=== PATIENT | male | born 1955 | race Two or more races ===

== ENCOUNTER 2024-11-07 10:39 | Day surgery (SDC) | payer MEDICARE, MEDICAID ==
[2024-11-05 12:50] LABS: Urine Bacteria None Seen /hpf (None Seen)
[2024-11-05 13:17] LABS: Basophils # (auto) 0 10 ^3/uL (0-0.2); Eosinophils # (auto) 0.1 10 ^3/uL (0-0.8); Hemoglobin 12.9 g/dL (13.5-17.5); Monocytes # (auto) 0.6 10 ^3/uL (0-1.3); Urine Blood TRACE /uL (Negative); Urine Clarity Clear (Clear); Urine Color Light-Yellow (Yellow); Urine Protein, UAD Negative (Negative); Urine Specific Gravity 1.016 (1.001-1.035); Urine Squamous Epithelial Cell FEW /hpf (<5); Urine Urobilinogen Normal (Negative); Urine WBC < 1 /HPF (0-3); White Blood Cell 9.3 10^3/uL (4.4-10.8)
[2024-11-05 13:19] LABS: Basophils % (auto) 0.4 % (0.0-2.0); Eosinophils % (auto) 1.2 % (0.0-7.0); Hematocrit 41.1 % (41.0-53.0); Lymphocytes # (auto) 1.7 10 ^3/uL (0.4-5.4); Lymphocytes % (auto) 18.1 % (10.0-50.0); Mean Corpuscular Hemoglobin 21.8 pg (28.0-32.0); Mean Corpuscular Hgb Conc. 31.5 g/dL (32.0-36.0); Mean Corpuscular Volume 69.3 fL (80.0-100.0); Monocytes % (auto) 6.2 % (0.0-12.0); Neutrophils # (auto) 6.9 10 ^3/uL (1.6-8.6); Neutrophils % (auto) 74.1 % (37.0-80.0); Nucleated Red Blood Cells % 0.1 %; Platelet Count (auto) 255 10^3/uL (140-450); Red Blood Cells 5.93 10^6/uL (4.5-5.90); Red Cell Distribution Width 15.2 % (11.8-14.3)
[2024-11-05 13:35] LABS: INR 0.97 (0.9-1.15); Partial Thromboplastin Time 30.6 SEC (24.5-34.5); Prothrombin Time 10.3 sec (9.3-11.8)
[2024-11-05 13:46] LABS: Alanine Aminotransferase 35 U/L (7-40); Alkaline Phosphatase 81 U/L (46-116); Anion Gap 8 (5-15); Aspartate Aminotransferase 24 U/L (13-40); Blood Urea Nitrogen 18 mg/dL (9-23); Calcium 9.9 mg/dL (8.7-10.4); Carbon Dioxide 28 mmol/L (20-31); Chloride 102 mmol/L (98-107); Glucose 97 mg/dL (74-106); Potassium 3.7 mmol/L (3.5-5.1); Sodium 138 mmol/L (136-145)
[2024-11-05 13:47] LABS: Bilirubin, Total 0.4 mg/dL (0.2-1.0); Total Protein 7.7 g/dL (5.7-8.2)
[2024-11-05 13:52] LABS: Albumin 5.1 g/dL (3.2-4.8)
[~2024-11-07] VITALS: Ht 162.6 cm; Wt 63.5 kg
[~2024-11-07 10:39] MED LIST: ALLO300T2 PO; AMLO1TAB22 PO; ASPI1TAB38 PO; B-CO1CAP18 PO; CHOL20007 PO; CLOP75TA70 PO; DONETAB5 PO; FERR325T24 PO; LOSA-534 PO; METF-929 PO; ROSU5TAB24 PO; TAMS-35 PO
[2024-11-07] MEDS ORDERED: ceFAZolin 2 GM/D5W100ml 100 ML IV ONE (11:28)
[2024-11-07] MEDS ORDERED: ROPIVACAINE 0.5% (5MG/ML) 20ML AMPULE IJ ONE (12:42)
[2024-11-07] MEDS ORDERED: ceFAZolin 1GM VL ONE (12:42)
[2024-11-07] MEDS ORDERED: PROPOFOL 10 MG/ML 20 ML IV ONE (14:23)
[2024-11-07] MEDS ORDERED: ONDANSETRON HCL 4 MG/2 ML VIAL ONE (14:23)
[2024-11-07] MEDS ORDERED: KETAMINE 50mg/ML 1ml syringe ONE (14:23)
[2024-11-07] MEDS ORDERED: SODIUM CHLORIDE LOCK 10 ML ONE (14:23)
[2024-11-07] MEDS ORDERED: LIDOCAINE 1% INJ PF 5ML AMP ONE (14:23)
[2024-11-07] MEDS ORDERED: MIDAZOLAM HCL 2MG/2ML 2ml VIAL (1mg/ml) ONE (14:23)
[2024-11-07] MEDS ORDERED: MEPERIDINE HCL (25 MG/ML) 1ML VIAL ONE (14:23)
[2024-11-07] MEDS ORDERED: fentaNYL CITRATE 100 MCG/2 ML VL ONE (14:23)
[2024-11-07] MEDS ORDERED: MORPHINE SULFATE 4 MG/ML SYR/VIAL IV PRN (14:30)
[2024-11-07] MEDS ORDERED: METOCLOPRAMIDE HCL 5MG/ml INJ 2ml VIAL IV ONE (14:30)
[2024-11-07] MEDS ORDERED: HYDROmorphone HCL 2 MG/ML VL/or syr IV PRN ×2 (14:30)
[2024-11-07] MEDS ORDERED: KETOROLAC TROMETH 30 MG/ML 1ML VIAL IV ONE (14:30)
[2024-11-07] MEDS ORDERED: MORPHINE SULFATE INJ 2 MG/ml SYRG IV PRN (14:30)
[2024-11-07 15:28] VITALS: PULSE 84; RESP 28; TEMP 98.3
--- NOTE | 2024-11-07 15:30 | DVHOP2 ---
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 Gary MD Anesthesia: Mac Consent: The patient was informed of the risks and benefits of the procedure. These include but are not limited to complications of anesthesia, postoperative infection, incomplete relief of symptoms, recurrence of symptoms, damage to blood vessels, nerves and tendons, deep venous thrombosis, pulmonary embolism and possible need for repeat surgery in the future. Name of Procedure Performed Hemiphalangectomy 5th right toe Procedure Details Procedure Details: The patient was brought to the operating room placed on the operating table in the supine position. After MAC anesthesia was achieved for proximally 20 cc of 0.5% ropivacaine plain was injected in V block and local infiltration fashion to the 5th right toe. This was done without incident. The right foot was prepped and draped in the proper aseptic manner. Attention was now directed to Procedure 1. Procedure 1. Hemiphalangectomy 5th right toe: Two semi elliptical incisions were placed on the dorsal aspect of 5th right toe. The incision was carried deep by means of sharp and blunt dissection with care being taken to preserve all underlying vital structures. All bleeders were bovied or ligated as necessary. The extensor tendon to the 5th right toe was identified transected transversely at the 5th right MPJ without incident the base of the proximal phalanx was identified was noted to have significant exostoses medially utilizing a power saw a hemiphalangectomy was performed and the bone was sent to pathology as specimen. Area was rasped smooth no rough edges had remained area was flushed with copious amounts of irrigant was aspirated no debris was noted. At this time the extensor tendon was reanastomosed utilizing 4-0 Vicryl suture subcuticular cyst 4-0 Vicryl sutures skin 4-0 nylon suture. The toe was noted to be in rectus anatomic position therefore did not necessitate the use of a K-wire. Surgical dressing consisted of bacitracin ointment Xeroform 4x4s Kerlix and Jeison bandage to yield a mildly compressive type bandage. There were no intra op complications the patient left the operating recovery room stable condition. The patient was prophylaxed 2 g of Ancef prior to surgery. Patient given strict instructions to ambulate in the postop shoe only not one step without. Patient has postop medications follow visit to my office at home. Specimen: Bone Condition Good Disposition Home AVERY RED DPM Nov 07, 2024 15:30
[2024-11-07 16:28] VITALS: BP 159/92; PULSE 80; RESP 76; O2SAT 99
== END 2024-11-07 16:30 | disposition home or self-care (01) ==
LOC: SUR 10:39
PROVIDERS: ATTEND Podiatrist Foot & Ankle Surgery
DX: M20.41 Other hammer toe(s) (acquired), right foot (principal); D16.31 Benign neoplasm of short bones of right lower limb; L84 Corns and callosities; M20.5X1 Other deformities of toe(s) (acquired), right foot; I10 Essential (primary) hypertension; E11.9 Type 2 diabetes mellitus without complications; F03.90 Unspecified dementia, unspecified severity, without behavioral disturbance, psychotic disturbance, mood disturbance, and anxiety
CPT/HCPCS: 28124; 28285; 36415; 80053; 81001; 82962; 85025; 85610; 85730; 88305; 88311; C1781; C1887; J0690; J2175; J2250; J2405; J2704; J2795; J3010; J7030; L3260